=== PATIENT | female | born 1990 ===

== ENCOUNTER → 2018-02-06 | Outpatient (CLI) | payer BC ==
[~2018-02-06] MED LIST: LORA-799 PO
== END ==
LOC: LAB 14:55
PROVIDERS: ATTEND Otolaryngology
DX: J32.9 Chronic sinusitis, unspecified (principal); B96.89 Other specified bacterial agents as the cause of diseases classified elsewhere
CPT/HCPCS: 87071

== ENCOUNTER → 2018-02-13 | Outpatient (CLI) | payer BC ==
--- NOTE | 2018-02-13 17:45 | RADIOLOGY IMAGING REPORT ---
FACILITY: [facility] PATIENT NAME: Jeanine Tsang : 1990 MR: [id number] V: [id number] EXAM DATE: ORDERING PHYSICIAN: COURT PINEDA TECHNOLOGIST: [facility] Patient: Jeanine Tsang : 1990 Visit/Account:[id number] Date of Sevice: 02/13/2018 EXAMINATION: CT of the Paranasal Sinuses HISTORY: Chronic sinusitis. TECHNIQUE: Contiguous axial images were obtained through the paranasal sinuses without intravenous c ontrast administration. Coronal and sagittal reformatted images were obtained from the axial source d ariella. One of the following dose optimization techniques was utilized in the performance of this exam: Autom ated exposure control; adjustment of the mA and/or kV according to the patient's size; or use of an i terative reconstruction technique. Specific details can be referenced in the facility's radiology C T exam operational policy. COMPARISON: None available. FINDINGS: Maxillary sinuses: Bilateral medial maxillary antrostomy. Mild mucosal thickening in the bilateral ma xillary sinuses. Frontal sinuses: Bilateral frontal sinuses are clear. Ethmoid air cells: Bilateral partial ethmoidectomy. Minimal mucosal thickening in the residual ethmoi d air cells. Sphenoid sinuses: Small retention cyst or polyp in the lateral recess of the left sphenoid sinus. Oth erwise negative. Ostiomeatal units: Patent. Nasal septum / nasal cavity: Rightward nasal septal deviation. Orbits: Negative. Visualized intracranial contents/soft tissues: Negative. TMJs: Negative. IMPRESSION: 1. Postoperative changes include bilateral medial maxillary antrostomy and bilateral partial ethmoide ctomy. 2. Mild mucosal thickening in the maxillary sinuses. Minimal mucosal thickening in the residual ethmo id air cells. 3. Rightward nasal septal deviation. Report Dictated By: Nikhil Sanchez MD at 02/13/2018 5:38 PM Report E-Signed By: Nikhil Sanchez MD at 02/13/2018 5:42 PM WSN:[id number]
== END ==
LOC: CT 02:08
PROVIDERS: ATTEND Otolaryngology
DX: J34.2 Deviated nasal septum (principal); Z98.890 Other specified postprocedural states; J32.9 Chronic sinusitis, unspecified
CPT/HCPCS: 70486

== ENCOUNTER 2018-04-20 00:52 | Day surgery (SDC) | payer BC ==
[~2018-04-20] VITALS: Ht 170.2 cm; Wt 116.6 kg
[2018-04-20] VITALS (7 sets, daily range): BP systolic 117–135; BP diastolic 78–96
[~2018-04-20 00:52] MED LIST changes: +AZEL205. NS; +FLUT16SP19; +METH4TAB66 PO; +OLOP30.53 NS
[2018-04-20] MEDS ORDERED: ceFAZolin(*) 2GM/D5W 50ML 50 ML IVPB ONE (08:50)
[2018-04-20 09:13] LABS: PLATELET COUNT, AUTOMATED 341 K/uL (150-450)
[2018-04-20] MEDS ORDERED: fentaNYL CITR 250 MCG/5 ML AMP ONE (09:30)
[2018-04-20] MEDS ORDERED: PROPOFOL EMUL(*) 10MG/ML 20 ML 20 ML ONE ×2 (09:31→10:12)
[2018-04-20] MEDS ORDERED: ONDANSETRON 4 MG/2 ML VIAL ONE (09:31)
[2018-04-20] MEDS ORDERED: DEXAMETHASONE SOD PHOS 10MG/ML ONE (09:31)
[2018-04-20] MEDS ORDERED: LIDOCAINE MPF 1% 5 ML VIAL ONE (09:31)
[2018-04-20] MEDS ORDERED: BACITRACIN OINT 15 GM TUBE TP ONE (09:53)
[2018-04-20] MEDS ORDERED: MUPIROCIN 2% OINT 22 GM TUBE TP ONE (09:53)
[2018-04-20] MEDS ORDERED: LIDO/EPI 1% MDV 1:100,000 20ML INFIL ONE (09:53)
[2018-04-20] MEDS ORDERED: OXYMETAZOLINE SPRAY 15 ML BTL ONE (09:53)
[2018-04-20] MEDS ORDERED: FAMOTIDINE 20 MG TAB PO ONE (10:10)
[2018-04-20] MEDS ORDERED: MIDAZOLAM 2 MG/2 ML VIAL IVP PRN (10:10)
[2018-04-20] MEDS ORDERED: LIDOCAINE/SOD BICARB 8.4% SYR ID ONE (10:10)
[2018-04-20] MEDS ORDERED: NORMOSOL R SOLN(*) 1000 ML BAG 1,000 ML IV PRN (10:10)
[2018-04-20] MEDS ORDERED: KETAMINE HCL 200 MG/20 ML MDV ONE (10:12)
[2018-04-20] MEDS ORDERED: NS(*) 0.9% 250 ML BAG 250 ML ONE (10:24)
[2018-04-20] MEDS ORDERED: fentaNYL CITR 100 MCG/2 ML AMP ONE (11:16)
[2018-04-20] MEDS ORDERED: HYDR-385 PO (11:30)
[2018-04-20] MEDS ORDERED: CEFU500T10 PO (11:31)
[2018-04-20] MEDS ORDERED: APAP/HYDROCODONE 325/5 TAB ONE (11:52)
--- NOTE | 2018-04-20 13:11 | OPERATIVE REPORT 1 ---
EVENT DATE: April 20, 2018 SURGEON: Zeke Panchal MD ANESTHESIOLOGIST: Nigel Brody MD ANESTHESIA: LMA PROCEDURE 1. Septoplasty. 2. Submucosal resection of the bilateral inferior turbinates. PREOPERATIVE DIAGNOSIS 1. Nasal septal deviation. 2. Bilateral inferior turbinate hypertrophy. POSTOPERATIVE DIAGNOSIS 1. Nasal septal deviation. 2. Bilateral inferior turbinate hypertrophy. INDICATIONS Please refer to the preoperative note. DESCRIPTION OF PROCEDURE The patient was positively identified in the preoperative area. She was accompanied there by her significant other. Risks were again explained, including but not limited to bleeding, infection, nasal septal perforation and those associated with anesthesia. She acknowledged understanding of those risks. She was then brought back to the operative suite, laid supine on the operative table, and anesthesia was administered. Once asleep, the patient was positioned, then prepped and draped in usual sterile fashion. The nose was initially decongested by injecting approximately 10 mL of 1% lidocaine with epinephrine into the bilateral anterior nasal septal mucosa and along the face of the bilateral inferior turbinates. Both nasal cavities were subsequently packed with cottonoids containing Afrin solution. These were subsequently removed. A nasal endoscopy was performed. This was notable for a septal deviation to the left. A [place] incision was then made in the left anterior nasal septal mucosa. Subperichondrial flap was elevated. An incision was then made into the anterior nasal septal cartilage. A contralateral flap was elevated. The deviated portion of the patient's nasal septal cartilage and bone was then removed. The [place] incision was then reapproximated with interrupted chromic stitch. I then addressed the inferior turbinates. A stab incision was made at the face of the left inferior turbinate. A caudal elevator was utilized to elevate the mucosa off the underlying bone. A submucosal resection was then performed utilizing the turbinate blade of the microdebrider. The stab incision was then cauterized with suction Bovie electrocautery. The contralateral inferior turbinate was addressed in a similar fashion. Bilateral nasal septal splints were placed and secured to the columella with a suture. The patient was then turned to Anesthesia for emergence. ESTIMATED BLOOD LOSS 25 mL. COMPLICATIONS No complications. MTDD
== END 2018-04-20 12:08 | disposition home or self-care (01) ==
LOC: OR 00:52
PROVIDERS: ATTEND Otolaryngology
DX: J34.2 Deviated nasal septum (principal); J34.3 Hypertrophy of nasal turbinates; E66.01 Morbid (severe) obesity due to excess calories
CPT/HCPCS: 30140; 30520; 36415; 84703; 85025; J1100; J2001; J2250; J2405; J2704; J3010; J3490; J7050; C1726; C1769; C1887; J0690

== ENCOUNTER → 2018-09-21 | Outpatient (REF) | payer BC ==
[~2018-09-21] MED LIST changes: +CEFU500T10 PO; +HYDR-385 PO; +MONT10TA PO
[2018-09-21 18:25] LABS: PLATELET COUNT, AUTOMATED 398 K/uL (150-450)
== END ==
PROVIDERS: ATTEND Family Medicine
DX: R10.9 Unspecified abdominal pain (principal); R11.0 Nausea
CPT/HCPCS: 82040; 82150; 82247; 82310; 82374; 82435; 82565; 82947; 83690; 84075; 84132; 84155; 84295; 84450; 84460; 84520; 85025

== ENCOUNTER → 2018-09-21 | Outpatient (CLI) | payer BC ==
[~2018-09-21] MED LIST changes: +IOPAMIDOL 76% 50 ML INFUS BTL 100 ML ONE
--- NOTE | 2018-09-21 20:06 | RADIOLOGY IMAGING REPORT ---
FACILITY: [facility] [place] PATIENT NAME: Jeanine Tsang : 1990 MR: [id number] V: [id number] EXAM DATE: ORDERING PHYSICIAN: REAL TONEY TECHNOLOGIST: Location: [facility] [place] Patient: Jeanine Tsang : 1990 Visit/Account:[id number] Date of Sevice: 09/21/2018 EXAMINATION: CT abdomen and pelvis with IV contrast HISTORY: Abdominal pain. TECHNIQUE: Axial CT images of the abdomen and pelvis were obtained with IV contrast, with coronal a nd sagittal 2D reconstructed images. One of the following dose optimization techniques was utilized in the performance of this exam: Autom ated exposure control; adjustment of the mA and/or kV according to the patient's size; or use of an i terative reconstruction technique. Specific details can be referenced in the facility's radiology C T exam operational policy. Contrast: 75 mL of IV [id number]-[id number]. COMPARISON: None. FINDINGS: Liver: Fatty infiltration of the liver. Gallbladder and bile ducts: Cholecystectomy. No bile duct dilatation. Spleen: Negative. Pancreas: Negative. Adrenal glands: Negative. Kidneys: Negative. No hydronephrosis or urinary calculi. Bowel and peritoneum: The small bowel and colon are normal in caliber. No bowel obstruction. Mild wall thickening along the right colon and descending colon may be compatible with an infectious or in flammatory colitis. There is submucosal fat attenuation along the right colon which is nonspecific b ut can be seen in the setting of old inflammatory bowel disease. Submucosal fat attenuation extends slightly along the terminal ileum. Small bowel loops are otherwise unremarkable by CT. Normal appen inocencio. No free fluid or free intraperitoneal air. Pelvic structures: Unremarkable by CT. No large adnexal cyst in the pelvis. Lymph node assessment: Negative. Vessels: Negative. Musculoskeletal: Negative. Body wall: Negative. Lung bases: Negative. IMPRESSION: 1. Mild wall thickening along the right and left colon may be compatible with an infectious or infla mmatory colitis. 2. There is submucosal fat attenuation along the right colon and terminal ileum which is nonspecific but can be seen in the setting of old inflammatory bowel disease. Correlate clinically and with any relevant prior medical history. 3. Cholecystectomy. 4. Normal appendix. Findings were discussed with REAL TONEY at 09/21/2018 8:01 PM. Report Dictated By: Zeke Panchal MD at 09/21/2018 7:43 PM Report E-Signed By: Zeke Panchal MD at 09/21/2018 8:02 PM WSN:[id number]
== END ==
LOC: CT 18:55
PROVIDERS: ATTEND Family Medicine
DX: Z90.49 Acquired absence of other specified parts of digestive tract (principal); R10.9 Unspecified abdominal pain
CPT/HCPCS: 74177; Q9967